=== PATIENT | female | born 1985 | race Caucasian/White ===

== ENCOUNTER 2018-12-07 10:07 | Emergency (ER) | payer OTHER ==
[~2018-12-07] VITALS: Ht 162.6 cm; Wt 85.3 kg
[2018-12-07] MEDS ORDERED: FOLIC ACID1 MG (10:20)
[2018-12-07] MEDS ORDERED: OBSTETRIX DHA1 EACH (10:21)
== END 2018-12-07 12:35 | disposition home or self-care (01) ==
LOC: ER 10:07
DX: O20.0 Threatened abortion (principal)

== ENCOUNTER 2019-01-29 15:31 | Inpatient (IN) | payer OTHER ==
[~2019-01-29] VITALS: Ht 162.6 cm; Wt 89.8 kg
[~2019-01-29 15:31] MED LIST: FOLIC ACID1 MG; OBSTETRIX DHA1 EACH
== END 2019-01-30 09:09 | disposition home or self-care (01) | DRG 779 ==
LOC: LDR 15:31
PROVIDERS: ADMIT Obstetrics & Gynecology
PROC: 10D17Z9 Manual Extraction of Products of Conception, Retained, Via Natural or Artificial Opening (ICD-10-PCS; principal; 2019-01-29 21:00)
DX: O03.39 Incomplete spontaneous abortion with other complications (principal)